=== PATIENT | male | born 2000 | race Hispanic/Latino ===

== ENCOUNTER 2022-09-10 01:41 | Emergency (ER) | payer MEDICAID ==
[~2022-09-10] VITALS: Ht 185.4 cm; Wt 73.0 kg
[2022-09-10 02:09] LABS: BASOPHILS % (AUTO) 0.3 % (0.0-5.0); EOSINOPHILS % (AUTO) 1.8 % (0.0-8.0); HEMATOCRIT 45.2 % (42-54); LYMPHOCYTES % (AUTO) 21.8 % (21.0-51.0); MEAN CORPUSCULAR HEMOGLOBIN 28.7 pg (27.0-33.0); MEAN CORPUSCULAR HGB CONC 33.6 g/dL (32.0-36.0); MEAN CORPUSCULAR VOLUME 85.3 fL (80-100); MONOCYTES % (AUTO) 8.3 % (3.0-13.0); NEUTROPHILS % (AUTO) 67.5 % (40.0-77.0); PLATELET COUNT (AUTO) 245 K/uL (130-400); RED CELL DISTRIBUTION WIDTH 12.5 % (11.0-15.5); WHITE BLOOD COUNT (AUTO) 11.8 K/uL (4.8-10.8)
[2022-09-10 02:11] LABS: APPEARANCE,URINE CLEAR (CLEAR); BILIRUBIN,URINE NEGATIVE (NEGATIVE); COLOR,URINE LIGHT-YELLOW (YELLOW); GLUCOSE, URINE (UA) NEGATIVE (NEGATIVE); KETONES,URINE NEGATIVE (NEGATIVE); LEUKOCYTE ESTERASE ,URINE NEGATIVE Leu/uL (NEGATIVE); NITRATE,URINE NEGATIVE (NEGATIVE); OCCULT BLOOD,URINE NEGATIVE (NEGATIVE); PH,URINE 7.5 (5.0-8.0); PROTEIN,URINE NEGATIVE (NEGATIVE); UROBILINOGEN,URINE 0.2 mg/dL (0.2-1.0)
[2022-09-10 02:17] LABS: POTASSIUM 3.9 mmol/L (3.5-5.1)
[2022-09-10 02:22] LABS: ALBUMIN 3.5 g/dL (3.5-5.0); TOTAL PROTEIN, SERUM 6.8 g/dL (6.0-8.3)
[2022-09-10] MEDS ORDERED: MUPI22OI2 TP (02:53)
[2022-09-10] MEDS ORDERED: SULF1TAB42 PO (02:53)
[2022-09-10] MEDS ORDERED: SULFAMETHOX-TMP DS 800/160 TAB PO SCH (03:00)
[2022-09-10] MEDS ORDERED: LIDOCAINE/PRILOCAINE CREAM 5GM TUBE TP SCH (03:00)
[2022-09-10] MEDS ORDERED: HYDROCODONE/ACETAMINOPHEN 5/325 MG TAB PO ONE (03:00)
[2022-09-10 03:35] VITALS: BP 120/65
== END 2022-09-10 03:36 | disposition home or self-care (01) ==
LOC: EDH 01:41
DX: N48.21 Abscess of corpus cavernosum and penis (principal)
CPT/HCPCS: 99284; 10160; 80053; 85025; 87070; 87076; 87077; 87186; 81003; 36415; J3490

== ENCOUNTER 2023-04-20 20:25 | Emergency (ER) | payer MEDICAID ==
[~2023-04-20] VITALS: Ht 185.4 cm; Wt 72.6 kg
[~2023-04-20 20:25] MED LIST: MUPI22OI2 TP; SULF1TAB42 PO
[2023-04-20 20:43] VITALS: BP 131/60
[2023-04-20] MEDS ORDERED: LIDOCAINE HCL 1% 20 ML VIAL ONE (20:54)
[2023-04-20] MEDS ORDERED: IBUP-1493 PO (21:10)
[2023-04-20] MEDS ORDERED: SULF1TAB42 PO (21:10)
[2023-04-20] MEDS ORDERED: CEPH500B PO (21:10)
[2023-04-20] MEDS ORDERED: DIPH,PERTUSS(ACELL),TET VAC/PF 0.5 ML VIAL IM ONE (21:30)
== END 2023-04-20 21:21 | disposition home or self-care (01) ==
LOC: EDH 20:25
DX: L02.416 Cutaneous abscess of left lower limb (principal); Z90.49 Acquired absence of other specified parts of digestive tract
CPT/HCPCS: 10060; 90471; 90715

== ENCOUNTER 2023-09-11 09:22 | Emergency (ER) | payer MEDICAID ==
[~2023-09-11] VITALS: Ht 185.4 cm; Wt 77.1 kg
[~2023-09-11 09:22] MED LIST changes: +CEPH500B PO; +IBUP-1493 PO
[2023-09-11 09:25] VITALS: BP 116/62; PULSE 102; RESP 18
[2023-09-11 10:41] LABS: BASOPHILS # (AUTO) 0.04 K/uL (0.00-0.20); BASOPHILS % (AUTO) 0.5 % (0.0-5.0); EOSINOPHILS # (AUTO) 0.11 K/uL (0.00-0.70); EOSINOPHILS % (AUTO) 1.2 % (0.0-8.0); HEMATOCRIT 47.8 % (42-54); IMMATURE GRANULOCYTE ABSOLUTE 0.04 K/uL (0-1); MEAN CORPUSCULAR HEMOGLOBIN 28.3 pg (27.0-33.0); MEAN CORPUSCULAR HGB CONC 33.5 g/dL (32.0-36.0); MEAN CORPUSCULAR VOLUME 84.6 fL (79-99); MONOCYTES # (AUTO) 0.6 K/uL (0.1-1.0); NEUTROPHILS % (AUTO) 67.8 % (40.0-77.0); PLATELET COUNT (AUTO) 258 K/uL (130-400); RED BLOOD CELL COUNT(AUTO) 5.65 MIL/uL (4.50-6.20); RED CELL DISTRIBUTION WIDTH 12.8 % (11.0-15.5); WHITE BLOOD COUNT (AUTO) 8.8 K/uL (4.8-10.8)
[2023-09-11 10:49] LABS: POTASSIUM 4.1 mmol/L (3.5-5.1)
[2023-09-11 10:53] LABS: ALBUMIN 4.1 g/dL (3.5-5.0); TOTAL PROTEIN, SERUM 7.3 g/dL (6.0-8.3)
[2023-09-11 11:17] LABS: AMPHET/METH SCREEN,URINE NEGATIVE (NEGATIVE); BARBITURATE SCREEN, URINE NEGATIVE (NEGATIVE); BENZODIAZEPINES SCREEN,URINE NEGATIVE (NEGATIVE); CANNABINOID SCREEN,URINE NEGATIVE (NEGATIVE); COCAINE SCREEN,URINE NEGATIVE (NEGATIVE); OPIATE SCREEN,URINE NEGATIVE (NEGATIVE); PHENCYCLIDINE SCREEN,URINE NEGATIVE (NEGATIVE)
[2023-09-11 11:37] LABS: APPEARANCE,URINE CLEAR (CLEAR); BILIRUBIN,URINE NEGATIVE (NEGATIVE); COLOR,URINE YELLOW (YELLOW); GLUCOSE, URINE (UA) NEGATIVE (NEGATIVE); KETONES,URINE NEGATIVE (NEGATIVE); LEUKOCYTE ESTERASE ,URINE NEGATIVE Leu/uL (NEGATIVE); NITRATE,URINE NEGATIVE (NEGATIVE); OCCULT BLOOD,URINE NEGATIVE (NEGATIVE); PROTEIN,URINE 30 mg/dL (NEGATIVE); UROBILINOGEN,URINE 0.2 mg/dL (0.2-1.0)
[2023-09-11 11:41] LABS: ADD UA MICROSCOPIC YES
[2023-09-11 11:44] LABS: BACTERIA,URINE RARE /HPF (None Seen); MUCUS,URINE MANY LPF (None Seen); OTHER CASTS, URINE 3 /LPF (None Seen); RBC,URINE 0-1 /HPF (0-1); WBC,URINE 0-1 /HPF (0-1)
[2023-09-11] MEDS ORDERED: HYDR-3421 PO (11:46)
== END 2023-09-11 11:58 | disposition home or self-care (01) ==
LOC: EDH 09:22
DX: F41.9 Anxiety disorder, unspecified (principal); Z79.1 Long term (current) use of non-steroidal anti-inflammatories (NSAID)
CPT/HCPCS: 36415; 71045; 80053; 80305; 81001; 83735; 84484; 85025; 93005

== ENCOUNTER 2023-09-19 01:12 | Emergency (ER) | payer MEDICAID ==
[~2023-09-19] VITALS: Ht 185.4 cm; Wt 72.6 kg
[~2023-09-19 01:12] MED LIST changes: +HYDR-3421 PO
[2023-09-19 01:13] VITALS: BP 172/71; PULSE 73; RESP 20
[2023-09-19] MEDS ORDERED: MAG/ALUM/SIMETH 30 ML UDCUP PO ONE (01:30)
[2023-09-19 01:43] LABS: APPEARANCE,URINE CLEAR (CLEAR); BILIRUBIN,URINE NEGATIVE (NEGATIVE); COLOR,URINE COLORLESS (YELLOW); GLUCOSE, URINE (UA) NEGATIVE (NEGATIVE); KETONES,URINE NEGATIVE (NEGATIVE); LEUKOCYTE ESTERASE ,URINE NEGATIVE Leu/uL (NEGATIVE); NITRATE,URINE NEGATIVE (NEGATIVE); OCCULT BLOOD,URINE NEGATIVE (NEGATIVE); PROTEIN,URINE NEGATIVE (NEGATIVE); UROBILINOGEN,URINE 0.2 mg/dL (0.2-1.0)
[2023-09-19 01:49] LABS: AMPHET/METH SCREEN,URINE NEGATIVE (NEGATIVE); BARBITURATE SCREEN, URINE NEGATIVE (NEGATIVE); BENZODIAZEPINES SCREEN,URINE NEGATIVE (NEGATIVE); CANNABINOID SCREEN,URINE NEGATIVE (NEGATIVE); COCAINE SCREEN,URINE NEGATIVE (NEGATIVE); OPIATE SCREEN,URINE NEGATIVE (NEGATIVE); PHENCYCLIDINE SCREEN,URINE NEGATIVE (NEGATIVE)
[2023-09-19 01:51] LABS: BASOPHILS # (AUTO) 0.06 K/uL (0.00-0.20); BASOPHILS % (AUTO) 0.7 % (0.0-5.0); EOSINOPHILS # (AUTO) 0.26 K/uL (0.00-0.70); EOSINOPHILS % (AUTO) 3.1 % (0.0-8.0); HEMATOCRIT 46.1 % (42-54); IMMATURE GRANULOCYTE ABSOLUTE 0.03 K/uL (0-1); LYMPHOCYTES # (AUTO) 3.7 K/uL (1.0-4.8); LYMPHOCYTES % (AUTO) 44.8 % (21.0-51.0); MEAN CORPUSCULAR HEMOGLOBIN 29.1 pg (27.0-33.0); MEAN CORPUSCULAR HGB CONC 34.3 g/dL (32.0-36.0); MEAN CORPUSCULAR VOLUME 84.9 fL (79-99); MONOCYTES # (AUTO) 0.6 K/uL (0.1-1.0); NEUTROPHILS # (AUTO) 3.7 K/uL (1.8-7.7); PLATELET COUNT (AUTO) 219 K/uL (130-400); RED BLOOD CELL COUNT(AUTO) 5.43 MIL/uL (4.50-6.20); RED CELL DISTRIBUTION WIDTH 12.5 % (11.0-15.5); WHITE BLOOD COUNT (AUTO) 8.3 K/uL (4.8-10.8)
[2023-09-19 02:00] LABS: ADD UA MICROSCOPIC NO
[2023-09-19 02:06] LABS: CREATININE 0.9 mg/dL (0.5-1.5); POTASSIUM 3.7 mmol/L (3.5-5.1)
[2023-09-19 02:10] LABS: ALBUMIN 4.2 g/dL (3.5-5.0); BILIRUBIN,TOTAL 0.8 mg/dL (0.2-1.0); MAGNESIUM 2.1 mg/dL (1.80-2.40); TOTAL PROTEIN, SERUM 7.1 g/dL (6.0-8.3)
[2023-09-19 02:15] LABS: B-TYPE NATRIURETIC PEPTIDE < 5 pg/mL (0-100)
== END 2023-09-19 03:20 | disposition home or self-care (01) ==
LOC: EDH 01:12
DX: F41.0 Panic disorder [episodic paroxysmal anxiety] (principal); Z90.49 Acquired absence of other specified parts of digestive tract; Z79.1 Long term (current) use of non-steroidal anti-inflammatories (NSAID)
CPT/HCPCS: 36415; 71045; 80053; 80305; 81003; 82550; 83735; 83880; 84484; 85025; 93005

== ENCOUNTER 2023-11-12 00:43 | Emergency (ER) | payer MEDICAID ==
[~2023-11-12] VITALS: Ht 185.4 cm; Wt 78.9 kg
[~2023-11-12 00:43] MED LIST changes: -CEPH500B PO; -IBUP-1493 PO; -MUPI22OI2 TP; -SULF1TAB42 PO
[2023-11-12 01:12] LABS: RAPID GROUP A STREP negative (NEGATIVE)
[2023-11-12 01:18] LABS: SARS-CoV-2, RNA, NAAT NEGATIVE SARS CoV-2 (NEGATIVE)
[2023-11-12 01:29] LABS: INFLUENZA TYPE A Negative For Type A (NEGATIVE)
[2023-11-12 01:33] LABS: INFLUENZA TYPE B Positive For Type B (NEGATIVE)
[2023-11-12] MEDS ORDERED: PRED20TA3 PO (03:22)
[2023-11-12] MEDS ORDERED: OSEL75 PO (03:22)
[2023-11-12] MEDS ORDERED: IBUP-2070 PO (03:22)
[2023-11-12] MEDS ORDERED: BROM118S48 PO (03:22)
[2023-11-12] MEDS ORDERED: PREDNISONE 20 MG TABLET PO ONE (03:30)
[2023-11-12] MEDS ORDERED: IBUPROFEN 600 MG TABLET PO ONE (03:30)
[2023-11-12] MEDS ORDERED: OSELTAMIVIR PHOSPHATE 75 MG CAP PO ONE (03:30)
[2023-11-12 03:34] VITALS: BP 142/82; PULSE 76; RESP 16; O2SAT 99
== END 2023-11-12 03:36 | disposition home or self-care (01) ==
LOC: EDH 00:43
DX: J10.1 Influenza due to other identified influenza virus with other respiratory manifestations (principal); Z20.822 Contact with and (suspected) exposure to COVID-19
CPT/HCPCS: 87635; 87804; 87880

== ENCOUNTER 2024-01-24 19:09 | Emergency (ER) | payer MEDICAID ==
[~2024-01-24] VITALS: Ht 185.4 cm; Wt 74.8 kg
[~2024-01-24 19:09] MED LIST changes: +D-ME118S47 PO; +IBUP-2070 PO; +OSEL75 PO; +PRED20TA3 PO
[2024-01-24 19:27] LABS: APPEARANCE,URINE CLEAR (CLEAR); BILIRUBIN,URINE NEGATIVE (NEGATIVE); COLOR,URINE COLORLESS (YELLOW); GLUCOSE, URINE (UA) NEGATIVE (NEGATIVE); KETONES,URINE NEGATIVE (NEGATIVE); LEUKOCYTE ESTERASE ,URINE NEGATIVE Leu/uL (NEGATIVE); NITRATE,URINE NEGATIVE (NEGATIVE); OCCULT BLOOD,URINE NEGATIVE (NEGATIVE); PROTEIN,URINE NEGATIVE (NEGATIVE); UROBILINOGEN,URINE 0.2 mg/dL (0.2-1.0)
[2024-01-24 19:28] LABS: ADD UA MICROSCOPIC YES
[2024-01-24 19:29] LABS: RAPID GROUP A STREP negative (NEGATIVE)
[2024-01-24 19:32] LABS: BASOPHILS # (AUTO) 0.03 K/uL (0.00-0.20); BASOPHILS % (AUTO) 0.7 % (0.0-5.0); EOSINOPHILS # (AUTO) 0.06 K/uL (0.00-0.70); EOSINOPHILS % (AUTO) 1.4 % (0.0-8.0); HEMATOCRIT 45.9 % (42-54); LYMPHOCYTES # (AUTO) 1.7 K/uL (1.0-4.8); LYMPHOCYTES % (AUTO) 37.2 % (21.0-51.0); MEAN CORPUSCULAR HEMOGLOBIN 28.7 pg (27.0-33.0); MEAN CORPUSCULAR HGB CONC 33.8 g/dL (32.0-36.0); MEAN CORPUSCULAR VOLUME 84.8 fL (79-99); MONOCYTES # (AUTO) 0.3 K/uL (0.1-1.0); MONOCYTES % (AUTO) 7.7 % (3.0-13.0); NEUTROPHILS # (AUTO) 2.4 K/uL (1.8-7.7); PLATELET COUNT (AUTO) 222 K/uL (130-400); RED BLOOD CELL COUNT(AUTO) 5.41 MIL/uL (4.50-6.20); RED CELL DISTRIBUTION WIDTH 12.2 % (11.0-15.5); WHITE BLOOD COUNT (AUTO) 4.4 K/uL (4.8-10.8)
[2024-01-24 19:35] LABS: SARS-CoV-2, RNA, NAAT NEGATIVE SARS CoV-2 (NEGATIVE)
[2024-01-24 19:44] LABS: INFLUENZA TYPE A Negative For Type A (NEGATIVE); INFLUENZA TYPE B Negative For Type B (NEGATIVE)
[2024-01-24 19:45] LABS: POTASSIUM 3.7 mmol/L (3.5-5.1)
[2024-01-24 19:49] LABS: ALBUMIN 4.2 g/dL (3.5-5.0); BILIRUBIN,TOTAL 1.4 mg/dL (0.2-1.0)
[2024-01-24] MEDS: METOCLOPRAMIDE 10 MG/2 ML VIAL IVP ONE (20:51)
[2024-01-24 21:11] LABS: THYROID STIMULATING HORMONE 1.73 uIU/mL (0.36-3.74)
[2024-01-24] MEDS ORDERED: POLY17PO4 PO (21:17)
[2024-01-24 21:23] VITALS: BP 125/80; PULSE 92; RESP 18; O2SAT 100
== END 2024-01-24 21:27 | disposition home or self-care (01) ==
LOC: EDH 19:09
DX: K59.00 Constipation, unspecified (principal); Z79.52 Long term (current) use of systemic steroids; Z86.14 Personal history of Methicillin resistant Staphylococcus aureus infection; Z90.49 Acquired absence of other specified parts of digestive tract; Z20.822 Contact with and (suspected) exposure to COVID-19
CPT/HCPCS: 99284; 96374; 87635; 86592; 84443; 83735; 80053; 83690; 85025; 87880; 87804 ×2; 87797; 87486; 81001; 36415; 74018; J2765

== ENCOUNTER 2024-05-06 11:45 | Emergency (ER) | payer MEDICAID ==
[~2024-05-06] VITALS: Ht 185.4 cm; Wt 63.5 kg
[~2024-05-06 11:45] MED LIST changes: +BROM118S48 PO; -D-ME118S47 PO; +POLY17PO4 PO
[2024-05-06 12:05] LABS: APPEARANCE,URINE CLEAR (CLEAR); BILIRUBIN,URINE NEGATIVE (NEGATIVE); COLOR,URINE COLORLESS (YELLOW); GLUCOSE, URINE (UA) NEGATIVE (NEGATIVE); KETONES,URINE NEGATIVE (NEGATIVE); LEUKOCYTE ESTERASE ,URINE NEGATIVE Leu/uL (NEGATIVE); NITRATE,URINE NEGATIVE (NEGATIVE); OCCULT BLOOD,URINE NEGATIVE (NEGATIVE); PROTEIN,URINE NEGATIVE (NEGATIVE); UROBILINOGEN,URINE 0.2 mg/dL (0.2-1.0)
[2024-05-06 12:16] LABS: ADD UA MICROSCOPIC NO
[2024-05-06 12:24] LABS: BASOPHILS # (AUTO) 0.04 K/uL (0.00-0.20); BASOPHILS % (AUTO) 0.8 % (0.0-5.0); HEMATOCRIT 42.2 % (42-54); IMMATURE GRANULOCYTE ABSOLUTE 0.01 K/uL (0-1); LYMPHOCYTES # (AUTO) 1.7 K/uL (1.0-4.8); MEAN CORPUSCULAR HEMOGLOBIN 28.5 pg (27.0-33.0); MEAN CORPUSCULAR HGB CONC 34.1 g/dL (32.0-36.0); MEAN CORPUSCULAR VOLUME 83.4 fL (79-99); MONOCYTES # (AUTO) 0.4 K/uL (0.1-1.0); NEUTROPHILS # (AUTO) 2.7 K/uL (1.8-7.7); PLATELET COUNT (AUTO) 195 K/uL (130-400); RED BLOOD CELL COUNT(AUTO) 5.06 MIL/uL (4.50-6.20); RED CELL DISTRIBUTION WIDTH 12.3 % (11.0-15.5)
[2024-05-06 12:40] LABS: CREATININE 0.9 mg/dL (0.5-1.3)
[2024-05-06 12:44] LABS: ALBUMIN 4.1 g/dL (3.5-5.0); BILIRUBIN,TOTAL 0.7 mg/dL (0.2-1.0); TOTAL PROTEIN, SERUM 7.3 g/dL (6.0-8.3)
[2024-05-06] MEDS ORDERED: ONDANSETRON 4MG INJ IVP ONE (13:00)
[2024-05-06] MEDS ORDERED: 0.9%NACL 1000ML 1,000 ML IV ONE (13:00)
[2024-05-06] MEDS ORDERED: ONDA-243 PO (14:07)
[2024-05-06 14:23] VITALS: BP 119/63; PULSE 69; RESP 17; O2SAT 99
== END 2024-05-06 14:23 | disposition home or self-care (01) ==
LOC: EDH 11:45
DX: K52.9 Noninfective gastroenteritis and colitis, unspecified (principal); F84.0 Autistic disorder; Z90.49 Acquired absence of other specified parts of digestive tract; Z79.899 Other long term (current) drug therapy
CPT/HCPCS: 36415; 80053; 81003; 85025

== ENCOUNTER 2024-05-12 22:19 | Emergency (ER) | payer MEDICAID ==
[~2024-05-12] VITALS: Ht 185.4 cm; Wt 68.9 kg
[~2024-05-12 22:19] MED LIST changes: +ONDA-243 PO
[2024-05-12 22:20] VITALS: BP 143/79; PULSE 93; RESP 18
[2024-05-12 23:03] LABS: BASOPHILS # (AUTO) 0.05 K/uL (0.00-0.20); BASOPHILS % (AUTO) 0.5 % (0.0-5.0); EOSINOPHILS # (AUTO) 0.12 K/uL (0.00-0.70); EOSINOPHILS % (AUTO) 1.3 % (0.0-8.0); HEMATOCRIT 46.7 % (42-54); IMMATURE GRANULOCYTE ABSOLUTE 0.01 K/uL (0-1); LYMPHOCYTES % (AUTO) 32.1 % (21.0-51.0); MEAN CORPUSCULAR HEMOGLOBIN 28.8 pg (27.0-33.0); MEAN CORPUSCULAR HGB CONC 34.7 g/dL (32.0-36.0); MEAN CORPUSCULAR VOLUME 82.9 fL (79-99); MONOCYTES # (AUTO) 0.5 K/uL (0.1-1.0); MONOCYTES % (AUTO) 5.6 % (3.0-13.0); NEUTROPHILS # (AUTO) 5.7 K/uL (1.8-7.7); NEUTROPHILS % (AUTO) 60.4 % (40.0-77.0); PLATELET COUNT (AUTO) 222 K/uL (130-400); RED BLOOD CELL COUNT(AUTO) 5.63 MIL/uL (4.50-6.20); WHITE BLOOD COUNT (AUTO) 9.4 K/uL (4.8-10.8)
[2024-05-12 23:12] LABS: CREATININE 1.1 mg/dL (0.5-1.3); MAGNESIUM 1.9 mg/dL (1.80-2.40); POTASSIUM 3.5 mmol/L (3.5-5.1)
[2024-05-13] MEDS: ACETAMINOPHEN 325 MG TAB PO ONE (00:08)
[2024-05-13] MEDS: ONDANSETRON ODT 4MG TAB SL ONE (00:08)
[2024-05-13 00:16] LABS: RAPID GROUP A STREP negative (NEGATIVE)
[2024-05-13 00:27] LABS: INFLUENZA TYPE A Negative For Type A (NEGATIVE); INFLUENZA TYPE B Negative For Type B (NEGATIVE); SARS-CoV-2, RNA, NAAT NEGATIVE SARS CoV-2 (NEGATIVE)
[2024-05-13 01:15] LABS: APPEARANCE,URINE CLEAR (CLEAR); BILIRUBIN,URINE NEGATIVE (NEGATIVE); COLOR,URINE COLORLESS (YELLOW); GLUCOSE, URINE (UA) NEGATIVE (NEGATIVE); KETONES,URINE NEGATIVE (NEGATIVE); LEUKOCYTE ESTERASE ,URINE NEGATIVE Leu/uL (NEGATIVE); NITRATE,URINE NEGATIVE (NEGATIVE); OCCULT BLOOD,URINE NEGATIVE (NEGATIVE); PH,URINE 6.5 (5.0-8.0); PROTEIN,URINE NEGATIVE (NEGATIVE); UROBILINOGEN,URINE 0.2 mg/dL (0.2-1.0)
[2024-05-13 01:17] LABS: ADD UA MICROSCOPIC NO
[2024-05-13 01:22] LABS: AMPHET/METH SCREEN,URINE NEGATIVE (NEGATIVE); BARBITURATE SCREEN, URINE NEGATIVE (NEGATIVE); BENZODIAZEPINES SCREEN,URINE NEGATIVE (NEGATIVE); CANNABINOID SCREEN,URINE NEGATIVE (NEGATIVE); COCAINE SCREEN,URINE NEGATIVE (NEGATIVE); OPIATE SCREEN,URINE NEGATIVE (NEGATIVE); PHENCYCLIDINE SCREEN,URINE NEGATIVE (NEGATIVE)
[2024-05-13] MEDS ORDERED: ONDA-243 PO (01:54)
[2024-05-13] MEDS ORDERED: POLY17PO4 PO (02:07)
== END 2024-05-13 02:13 | disposition home or self-care (01) ==
LOC: EDH 22:19
DX: R11.0 Nausea (principal); K59.00 Constipation, unspecified; Z79.52 Long term (current) use of systemic steroids; Z90.49 Acquired absence of other specified parts of digestive tract; Z20.822 Contact with and (suspected) exposure to COVID-19
CPT/HCPCS: 36415; 74176; 80048; 80305; 81003; 83735; 85025; 87635; 87804; 87880

== ENCOUNTER 2024-08-09 09:37 | Emergency (ER) | payer MEDICAID ==
[~2024-08-09] VITALS: Ht 185.4 cm; Wt 74.8 kg
[2024-08-09 09:41] VITALS: BP 125/57; PULSE 73; RESP 16; TEMP 97.9
--- NOTE | 2024-08-09 10:12 | ERN ---
ED Note History of Present Illness Stated Complaint: FEELS BONES ARE CROOKED AFTER HEAVY LIFTING Chief Complaint: Other Problems Time Seen by MD: 09:57 Dictation: PATIENT IS A 24-YEAR-OLD MALE HERE WITH MULTIPLE COMPLAINTS HOWEVER HIS MAIN COMPLAINT IS HE IS HAVING JOINT PAIN AFTER HE WORKS OUT WITH WEIGHTS. HE STATES HE HAS BEEN WORKING OUT FOR THE LAST SEVERAL WEEKS AND HE GETS SHOULDER PAIN AFTER HE WORKS OUT. STATES TODAY HE WORKED OUT AT 07:00 O'CLOCK IN THE MORNING AND WAS DOING OVERHEAD PRESSES AND SAID WHEN HE HAS FINISHED HIS JOINTS TO HIS SHOULDERS FEEL TIRED. HE DENIES FEVER CHILLS NAUSEA VOMITING NO CHEST PAIN NO BACK PAIN NO SOB. STATES HE GOES TO [facility] AND THEY HAVE ALREADY EVALUATED FOR THIS PAIN AND COULD NOT FIND ANY CAUSE OR ETIOLOGY. HE STATES HE HAS TAKEN NOTHING PRIOR TO ARRIVAL FOR PAIN. Allergies: Coded Allergies: No Allergy Information Available (Verified Allergy, Unknown, 11/12/23) No Known Allergies (Unverified Allergy, Unknown, 11/12/23) Home Meds Active Scripts Acetaminophen (Tylenol) 500 Mg Tab, 500 MG PO Q6HPRN PRN for PAIN, #30 TAB Prov:OKSANA GONZALEZ NP 08/09/24 Polyethylene Glycol 3350 (Miralax) 17 Gram Powd.pack, 17 GM PO DAILY, #30 PACK 0 Refills Prov:JALEESA GIORDANO NP 05/13/24 Ondansetron (Ondansetron Odt) 4 Mg Tab.rapdis, 4 MG PO q6hr PRN for nausea/vomi ting, #10 TAB 0 Refills Prov:JALEESA GIORDANO NP 05/13/24 Ondansetron (Ondansetron Odt) 4 Mg Tab.rapdis, 4 MG PO BID for vomiting for 5 Days, #10 TAB Prov:SWAPNIL DE LA TORRE MD 05/06/24 Polyethylene Glycol 3350 (Miralax) 17 Gram Powd.pack, 17 GM PO DAILY for constipation, #30 PACKET 2 Refills Prov:BECK BRAUN Sr., MD 01/24/24 D-Methorphan Hb/P-Epd HCl/Bpm (Bromfed Dm Cough Syrup) 2 Mg-30 Mg-10 Mg/5 Ml Syrup, 5 ML PO Q6HPRN PRN for COUGH/COLD SYMPTOMS, #240 ML Prov:EUGENIA BURTON RADIOLOGY ASST 11/12/23 Ibuprofen (Ibuprofen) 600 Mg Tablet, 600 MG PO Q6H PRN for PAIN, #30 TAB Prov:EUGENIA BURTON RADIOLOGY ASST 11/12/23 Prednisone (Prednisone) 20 Mg Tablet, 2 TAB PO DAILY for 5 Days, #10 TAB 0 Refills Prov:EUGENIA BURTON RADIOLOGY ASST 11/12/23 Oseltamivir Phosphate (Tamiflu) 75 Mg Cap, 75 MG PO BID for 5 Days, #10 CAP Prov:EUGENIA BURTON RADIOLOGY ASST 11/12/23 Hydroxyzine HCl (Hydroxyzine HCl) 25 Mg Tablet, 25 MG PO TID for 3 Days, #9 TAB Prov:YOEL FRANCISCO V RADIOLOGY ASST 09/11/23 Past Medical History Past Medical History: No Pertinent History Additional Past Medical Hx: AUSTISM. Surgical History: Cholecystectomy Family History: Negative Social History: Negative, Lives with family RN Note Reviewed/Agreed w/PFSH: Yes Review of System Dictation CONSTITUTIONAL: NEGATIVE EXCEPT FOR HPI HEAD/FACE: NEGATIVE EXCEPT FOR HPI EENT: NEGATIVE EXCEPT FOR HPI RESPIRATORY: NEGATIVE EXCEPT FOR HPI GASTROINTESTINAL/ABDOMINAL: NEGATIVE EXCEPT FOR HPI GENITOURINARY: NEGATIVE EXCEPT FOR HPI MUSCULOSKELETAL: NEGATIVE EXCEPT FOR HPI JOINT PAIN INTEGUMENTARY: NEGATIVE EXCEPT FOR HPI NEUROLOGICAL/PSYCH: NEGATIVE EXCEPT FOR HPI HEMATOLOGIC/LYMPHATIC: NEGATIVE EXCEPT FOR HPI ALL SYSTEMS NEGATIVE, EXCEPT NOTED ABOVE. 13 POINT REVIEW OF SYSTEMS ASSESSED AND ALL NEGATIVE EXCEPT FOR ABOVE. Initial Vital Sign VS Vital Signs Date Time Temp Pulse Resp B/P (MAP) Pulse Ox O2 Delivery O2 Flow Rate FiO2 08/09/24 09:41 97.9 73 16 125/57 98 Room Air 0 Physical Exam Dictation VITAL SIGNS REVIEWED GENERAL APPEARANCE: ALERT, ORIENTED X 3, MILD ACUTE DISTRESS, WELL DEVELOPED, NOURISHED. HEAD AND FACE: NON-TRAUMATIC. EYES: PERRL, PINK CONJUNCTIVAS, EYELID NO TRAUMA, ANTERIOR CHAMBER WITH ARCUS SENILIS. EARS: PINNAS INTACT AND NO SIGNS OF TRAUMA OR ERYTHEMA EAR CANALS CLEAR AND NO D ISCHARGE TM NO ERYTHEMA NOSE: NO DISCHARGE, NO BLEEDING. OROPHARYNX: MOUTH NORMAL, TONGUE PINK, PHARYNX CLEAR,NO ERYTHEMA, TONSILS NO EXUDATES, NO ABSCESSES NOTED, MUCOUS MEMBRANE MOIST NECK: SUPPLE, NON-TENDER, NO THYROMEGALY, NO MASSES, NO JVD, NO BRUITS BREAST:DEFERRED CHEST:NO TENDERNESS, NO CREPITUS, NO PARADOXICAL MOVEMENT, NO RETRACTIONS LUNGS:CLEAR, WELL-VENTILATED, SYMMETRIC, NO RALES, NO WHEEZING, NO RHONCHI, NO STRIDOR, GOOD BREATH SOUNDS BILATERALLY HEART: REGULAR RATE, REGULAR RHYTHM, NO MURMUR, NO GALLOPS VASCULAR: NO PERIPHERAL EDEMA, ABDOMEN: SOFT, POSITIVE BOWEL SOUNDS, NONDISTENDED, NO GUARDING, NONTENDER, NO REBOUND, NO MASSES NO HEPATOMEGALY, NO SPLENOMEGALY, NO MILNER'S SIGN, NO HERNIAS. RECTAL: DEFERRED GENITAL: DEFERRED NEUROLOGICAL: NORMAL SPEECH, MOTOR FUNCTION INTACT, SENSORY FUNCTION INTACT MUSCULOSKELETAL: NECK NONTENDER, FULL RANGE OF MOTION, BACK NONTENDER, FULL RANGE OF MOTION, EXTREMITIES: MILD BILATERAL SHOULDER PAIN WITH PALPATION HOWEVER DEMONSTRATES FULL RANGE OF MOTION TO ALL EXTREMITIES INCLUDING SHOULDERS. SKIN: COLOR PINK, DRY, NO TURGOR, NO RASH, NO LACERATIONS, NO ABRASIONS, NO CONTUSIONS. LYMPHATIC: DEFERRED Results (Laboratory/Radiology) Labs Reviewed?: Yes ED Course ED Course TEN , NO IMAGING OR LABS INDICATED. WE WILL TREAT FOR PAIN AND REFER HIM BACK TO HIS PRIMARY CARE DOCTOR Medical Decision Making MDM MEDICAL DECISION-MAKING WAS BASED ON TREATMENT FOR JOINT PAIN ONLY NO LABS OR IMAGING INDICATED PATIENT ENCOURAGED TO WARM UP BEFORE HE LIFTS WEIGHTS AND TO SEE HIS PRIMARY CARE DOCTOR FOR FOLLOW UP TAKE TYLENOL NEEDED FOR MILD PAIN DX & DISP Disposition: Discharge Departure Impression: Primary Impression: Acute pain of both shoulders Condition: Stable Scripts Acetaminophen (Tylenol) 500 Mg Tab 500 MG PO Q6HPRN PRN for PAIN, #30 TAB Prov: OKSANA GONZALEZ MEDICAL PARASITOLOGIST 08/09/24 Additional Instructions: FOLLOW-UP WITH PRIMARY CARE PROVIDER IN 1 TO 2 DAYS. TAKE MEDICATIONS DIRECTED HERE IN THE EMERGENCY ROOM. OKAY TO CONTINUE HOME MEDICATIONS UNLESS OTHERWISE DISCUSSED DURING YOUR VISIT IN THE EMERGENCY ROOM TODAY. RETURN TO YOUR NEAREST EMERGENCY ROOM IF SYMPTOMS WORSEN OR IF THERE IS NO IMPROVEMENT. CALL 911 IF YOU NEED IMMEDIATE ASSISTANCE. TAKE TYLENOL OR MOTRIN OVER-THE-CO UNTER NEEDED AND IF NO CONTRAINDICATIONS ARE PRESENT. INCREASE ORAL HYDRATION. A WOUND CULTURE OR URINE CULTURE WAS ORDERED HERE IN THE EMERGENCY ROOM DEPARTMENT PLEASE FOLLOW-UP WITH PRIMARY CARE PROVIDER AND ADVISE THEM TO GET REPEAT PORTS FROM OUR FACILITY. IF YOU HAD ANY PATTIE WRAP/SPLINTS THAT WERE APPLIED HERE, PLEASE DO NOT REMOVE THEM UNTIL YOU SEE YOUR PRIMARY CARE OR SPECIALTY. NO WORKING OUT WITH WEIGHTS UNTIL CLEARED BY YOUR PRIMARY CARE DOCTOR. IF PAIN DOES NOT IMPROVE IN THE NEXT SEVERAL DAYS, CONTACT ORTHOPEDIC SURGEON FOR AN APPOINTMENT AND FOLLOW UP Referrals: SELF,REFERRAL (PCP) EUGENIA HEATON MD Time of Disposition: 10:18 I have reviewed the case, and I agree with, Diagnosis and Plan I performed this substantive portion of this visit. I have reviewed and personally made and approve the management plan that is documented in the note by myself or the JORGE. I acknowledge full responsibility for the patient's management plan. OKSANA GONZALEZ NP Aug 09, 2024 10:12 ROWAN GOODSON MD Sep 11, 2024 15:01
[2024-08-09] MEDS ORDERED: ACET-66 PO (10:19)
[2024-08-09] MEDS: acetaMINOPHEN 500 MG TABLET PO ONE (10:21)
== END 2024-08-09 10:27 | disposition home or self-care (01) ==
LOC: EDH 09:37
DX: M25.512 Pain in left shoulder (principal); M25.511 Pain in right shoulder; Z79.52 Long term (current) use of systemic steroids; Z90.49 Acquired absence of other specified parts of digestive tract; Z79.899 Other long term (current) drug therapy

== ENCOUNTER 2025-03-14 17:18 | Emergency (ER) | payer MEDICAID ==
[~2025-03-14] VITALS: Ht 185.4 cm; Wt 74.4 kg
[~2025-03-14 17:18] MED LIST changes: +ACET-66 PO
--- NOTE | 2025-03-14 18:13 | ERN ---
ED Note History of Present Illness Stated Complaint: ABCESS Chief Complaint: Abscess Time Seen by MD: 17:27 Time Seen by Midlevel: 17:27 Dictation: The patient is a 24-year-old male with history of gallstones who presents to the emergency department with complaints of a mass to his occipital area that he noticed today. Patient reports it is painful. Denies any fevers or recent illness. Allergies: Coded Allergies: No Allergy Information Available (Verified Allergy, Unknown, 11/12/23) No Known Allergies (Unverified Allergy, Unknown, 11/12/23) Home Meds Active Scripts Acetaminophen (Tylenol) 500 Mg Tab, 500 MG PO Q6HPRN PRN for PAIN, #30 TAB Prov:OKSANA GONZALEZ NP 08/09/24 Polyethylene Glycol 3350 (Miralax) 17 Gram Powd.pack, 17 GM PO DAILY, #30 PACK 0 Refills Prov:JALEESA GIORDANO NP 05/13/24 Ondansetron (Ondansetron Odt) 4 Mg Tab.rapdis, 4 MG PO q6hr PRN for nausea/vomiting, #10 TAB 0 Refills Prov:JALEESA GIORDANO NP 05/13/24 Ondansetron (Ondansetron Odt) 4 Mg Tab.rapdis, 4 MG PO BID for vomiting for 5 Days, #10 TAB Prov:SWAPNIL DE LA TORRE MD 05/06/24 Polyethylene Glycol 3350 (Miralax) 17 Gram Powd.pack, 17 GM PO DAILY for constipation, #30 PACKET 2 Refills Prov:BECK BRAUN Sr., MD 01/24/24 D-Methorphan Hb/P-Epd HCl/Bpm (Bromfed Dm Cough Syrup) 2 Mg-30 Mg-10 Mg/5 Ml Syrup, 5 ML PO Q6HPRN PRN for COUGH/COLD SYMPTOMS, #240 ML Prov:EUGENIA BURTON DIRECTORY CARRIER 11/12/23 Ibuprofen (Ibuprofen) 600 Mg Tablet, 600 MG PO Q6H PRN for PAIN, #30 TAB Prov:JES BURTONLUPE DIRECTORY CARRIER 11/12/23 Prednisone (Prednisone) 20 Mg Tablet, 2 TAB PO DAILY for 5 Days, #10 TAB 0 Refills Prov:EUGENIA BURTON DIRECTORY CARRIER 1/10/24 Oseltamivir Phosphate (Tamiflu) 75 Mg Cap, 75 MG PO BID for 5 Days, #10 CAP Prov:EUGENIA BURTON DIRECTORY CARRIER 11/12/23 Hydroxyzine HCl (Hydroxyzine HCl) 25 Mg Tablet, 25 MG PO TID for 3 Days, #9 TAB Prov:YOEL FRANCISCO V DIRECTORY CARRIER 09/11/23 Past Medical History Past Medical History: No Pertinent History Additional Past Medical Hx: AUSTISM. Surgical History: Cholecystectomy Family History: Negative Social History: Negative, Lives with family RN Note Reviewed/Agreed w/PFSH: Yes Review of System Dictation Constitutional: Negative for fever,chills, and weight loss Eyes: Negative for injury, pain,redness, and discharge ENT: Negative for injury,pain or swelling Cardiovascular: Negative for chest pain, palpitations, and edema Respiratory: Negative for shortness of breath, cough, and wheezing, Abdomen/GI: Negative for abdominal pain, nausea, vomiting, diarrhea, and constipation Back: Negative for injury and pain : Negative for injury, bleeding and discharge MS/Extremity: Negative for injury and deformity Skin: mass to occipital scalp Neuro: Negative for headache, weakness, numbness, tingling, and seizure Psych: Negative for suicide ideation, homicidal ideation, and hallucinations Initial Vital Sign VS Vital Signs Date Time Temp Pulse Resp B/P (MAP) Pulse Ox O2 Delivery O2 Flow Rate FiO2 03/14/25 17:27 98.8 86 16 100/74 98 Room Air 0 03/14/25 18:29 21 Physical Exam Dictation Vital Signs reviewed General Appearance: Alert, oriented x 3, no acute distress, well developed, nourished. Head and Face: non-traumatic. Eyes: PERRL, pink conjunctivas, eyelid no trauma, anterior chamber with arcus senilis. Ears: Pinnas intact and no signs of trauma or erythema ear canals clear and no discharge TM no erythema Nose: No discharge, no bleeding. Oropharynx: Mouth normal, tongue pink. pharynx clear,no erythema, tonsils no exudates, no abscesses noted, mucous membrane moist Neck: Supple, non-tender, no thyromegaly, no masses, no JVD, no bruits Breast:Deferred Chest:No tenderness, no crepitus, no paradoxical movement, no retractions Lungs:Clear, well-ventilated, symmetric, no rales, no wheezing, no rhonchi, no stridor, good breath sounds bilaterally Heart: Regular rate, regular rhythm, no murmur, no gallops Vascular: no peripheral edema, Abdomen: Soft, positive bowel sounds, nondistended, no guarding, nontender, no rebound, no masses no hepatomegaly, no splenomegaly, no Bryan's sign, no hernias. Rectal: Deferred Genital: Deferred Neurological: Normal speech, motor function intact, sensory function intact Musculoskeletal: Neck nontender, full range of motion, back nontender, full range of motion, Extremities: nontender, full range of motion Skin: Color pink, dry, no turgor, no rash, no lacerations, no abrasions, no contusions. small nontender, nonmobile round mass to lower occipital area of scalp, no erythema or drainage Lymphatic: Deferred Results (Laboratory/Radiology) Labs Reviewed?: Yes ED Course ED Course Vital Signs Date Time Temp Pulse Resp B/P (MAP) Pulse Ox O2 Delivery O2 Flow Rate FiO2 03/14/25 18:29 98.8 85 16 105/76 98 Room Air* 0 21 03/14/25 17:27 98.8 86 16 100/74 98 Room Air 0 Medical Decision Making MDM The patient is a 24-year-old male with history of gallstones who presents to the emergency department with complaints of a mass to his occipital area that he noticed today. Patient reports it is painful. Denies any fevers or recent illness. Patient with a small nontender, nonmobile round mass to lower occipital area of scalp, no erythema or drainage. Will be discharge to follow up with pcp and general surgery for evaluation of lipoma. Patient in no acute distress. nontoxic appearance. Stable vital signs Differential diagnosis: Abscess, lipoma, lymph node Need for hospitalization: Patient does not meet criteria for hospitalization. There are no social concerns with this patient. DX & DISP Disposition: Discharge Departure Impression: Primary Impression: Lipoma of scalp Condition: Stable Additional Instructions: Please follow up with Pcp in 1-2 days. Follow up with to evaluate the need to have lipoma removed. If symptoms worsen please return to ER FOLLOW-UP WITH PRIMARY CARE PROVIDER IN 1 TO 2 DAYS. TAKE MEDICATIONS DIRECTED HERE IN THE EMERGENCY ROOM. OKAY TO CONTINUE HOME MEDICATIONS UNLESS OTHERWISE DISCUSSED DURING YOUR VISIT IN THE EMERGENCY ROOM TODAY. RETURN TO YOUR NEAREST EMERGENCY ROOM IF SYMPTOMS WORSEN OR IF THERE IS NO IMPROVEMENT. CALL 911 IF YOU NEED IMMEDIATE ASSISTANCE. TAKE TYLENOL OR MOTRIN OVER-THE- COUNTER NEEDED AND IF NO CONTRAINDICATIONS ARE PRESENT. INCREASE ORAL HYDRATION. A WOUND CULTURE OR URINE CULTURE WAS ORDERED HERE IN THE EMERGENCY ROOM DEPARTMENT PLEASE FOLLOW-UP WITH PRIMARY CARE PROVIDER AND ADVISE THEM TO GET REPEAT PORTS FROM OUR FACILITY. IF YOU HAD ANY PATTIE WRAP/SPLINTS THAT WERE APPLIED HERE, PLEASE DO NOT REMOVE THEM UNTIL YOU SEE YOUR PRIMARY CARE OR SPECIALTY. Referrals: SELF,REFERRAL (PCP) MYRA NELSON MD Time of Disposition: 18:12 I have reviewed the case, and I agree with, Diagnosis and Plan CHANELL TORIBIO March 14, 2025 18:13 MARY JANE HILLMAN DO March 14, 2025 18:47
[2025-03-14 18:29] VITALS: BP 105/76; PULSE 85; RESP 16; TEMP 98.7; O2SAT 98
== END 2025-03-14 18:30 | disposition home or self-care (01) ==
LOC: EDH 17:18
DX: D17.0 Benign lipomatous neoplasm of skin and subcutaneous tissue of head, face and neck (principal); Z79.52 Long term (current) use of systemic steroids; Z90.49 Acquired absence of other specified parts of digestive tract
CPT/HCPCS: 99282